=== PATIENT | male | born 1970 | race Caucasian/White ===

== ENCOUNTER 2024-01-03 08:51 | Outpatient (CLI) | payer MEDICARE, MEDICAID ==
[2024-01-03] MEDS ORDERED: Iopamidol 300 61% 100 ML VIAL FS ONE (12:31)
== END 2024-01-03 08:52 | disposition home or self-care (01) ==
LOC: CSHCT 08:51
PROVIDERS: ATTEND Psychiatry & Neurology Neurology
DX: G40.909 Epilepsy, unspecified, not intractable, without status epilepticus (principal)
CPT/HCPCS: 70470; Q9967